=== PATIENT | female | born 1950 | race Hispanic/Latino ===

== ENCOUNTER 2020-10-22 09:18 | Outpatient (CLI) | payer MEDICARE ==
--- NOTE | 2020-10-22 10:30 | RAD ---
PA AND LATERAL CHEST: HISTORY: The patient states a history of COVID 2 months ago, shortness of breath, since then flank pain. COMPARISON: None available. FINDINGS: Heart size within normal limits. There are atherosclerotic changes of the aorta. Bilateral predomina ntly lower lobe infiltrative-appearing lung changes are seen which could be chronic fibrotic scarring . Followup films would be required for assessment. IMPRESSION: Extensive predominantly bibasilar lung change could be consistent with COVID pneumonia. Changes may represent scarring given the history. POS: [facility]
== END 2020-10-22 09:19 | disposition home or self-care (01) ==
LOC: BICRAD 09:18
PROVIDERS: ATTEND Family Medicine
DX: R06.02 Shortness of breath (principal)
CPT/HCPCS: 71046

== ENCOUNTER 2020-11-05 13:41 | Outpatient (CLI) | payer MEDICARE | END 2020-11-05 13:42 | disposition home or self-care (01) | LOC: BICRAD 13:41 | PROVIDERS: ATTEND Family Medicine | DX: J18.9 Pneumonia, unspecified organism (principal); R91.8 Other nonspecific abnormal finding of lung field | CPT/HCPCS: 71046 ==

== ENCOUNTER 2021-02-18 13:55 | Outpatient (CLI) | payer MEDICARE | END 2021-02-18 13:56 | disposition home or self-care (01) | LOC: BICRAD 13:55 | PROVIDERS: ATTEND Family Medicine | DX: R91.8 Other nonspecific abnormal finding of lung field (principal); J84.9 Interstitial pulmonary disease, unspecified | CPT/HCPCS: 71046 ==

== ENCOUNTER 2024-02-19 14:11 | Emergency (ER) | payer MEDICARE ==
[2024-02-19 15:12] LABS: #Basophils 0.07 10x3/uL (0.0-0.2); %Basophils 0.7 % (0.0-1.0); %Eosinophils 2.2 % (0.0-10.0); %Lymphocytes 32.6 % (21.0-51.0); %Monocytes 7.2 % (0.0-10.0); %Neutrophils 56.9 % (42.0-75.0); Hematocrit 33.5 % (36.0-47.0); Hemoglobin 10.8 g/dL (12.0-16.0); Mean Corpuscular HGB CONC 32.2 g/dL (32.0-36.0); Mean Corpuscular Hemoglobin 27.1 pg (27.0-31.0); Mean Platelet Volume 10.9 fL (7.4-10.4); Platelet Count 217 10x3/uL (130-400); RBC Distribution Width 16.1 % (11.5-14.5); Red Blood Cell (RBC) Count 3.99 mill/uL (4.20-5.40)
[2024-02-19] MEDS ORDERED: Sodium Chloride 0.9% 100 ML ONE (15:23)
[2024-02-19] MEDS ORDERED: cefTRIAXone (ROCEPHIN) 2 GM VIAL ONE (15:23)
[2024-02-19] MEDS ORDERED: Morphine 2 MG/ML VIAL ONE (15:23)
[2024-02-19 15:36] LABS: ALT (SGPT) 7 U/L (8-55); AST (SGOT) 14 U/L (5-34); Albumin 3.8 g/dL (3.4-4.8); Alkaline Phosphatase 195 U/L (40-110); Anion Gap 13 mmol/L (10-20); BUN (Urea Nitrogen) 71 mg/dL (9.8-20.1); Bilirubin, Total 0.3 mg/dL (0.2-1.2); Calc. Creatinine Clearance 0 mL/min (70-130); Calcium 10.5 mg/dL (7.8-10.44); Carbon Dioxide 22 mmol/L (23-31); Chloride 106 mmol/L (98-107); Estimated GFR 10; Globulin 3.2 g/dL (2.4-3.5); Glucose 177 mg/dL (83-110); Potassium 4.5 mmol/L (3.5-5.1); Sodium 136 mmol/L (136-145)
[2024-02-19] MEDS ORDERED: Vancomycin 1 GM/200 ML (FROZEN) BAG ONE (17:00)
== END 2024-02-19 18:37 | disposition home or self-care (01) ==
LOC: ERS 14:11
DX: L03.116 Cellulitis of left lower limb (principal); I12.9 Hypertensive chronic kidney disease with stage 1 through stage 4 chronic kidney disease, or unspecified chronic kidney disease; E10.22 Type 1 diabetes mellitus with diabetic chronic kidney disease; N18.30 Chronic kidney disease, stage 3 unspecified; Z89.412 Acquired absence of left great toe
CPT/HCPCS: 73630; 80053; 83605; 85025; 87040; 96365; 96367; 96375; 99283; J0696; J2272; J3370; J3490; 36415